=== PATIENT | male | born 1975 | race Caucasian/White ===

== ENCOUNTER 2022-07-22 09:56 | Inpatient (IN) ==
[2022-07-22 12:26] LABS: Basophils % 0.2 %; Eosinophils # 0.1 K/mcL (0.0-0.6); Eosinophils % 0.8 %; Hematocrit 42.1 % (37.5-50.1); Hemoglobin 14.7 g/dL (12.9-16.9); Immature Granulocytes % 0.3 % (0-4); Mean Corpuscular HGB Conc 34.9 g/dL (31.6-35.5); Mean Corpuscular Hemoglobin 32.8 pg (28.0-33.3); Mean Platelet Volume 10.5 fL (9.4-12.4); Monocytes # 0.9 K/mcL (0.0-1.3); Monocytes % 6.9 %; Neutrophils # 9.5 K/mcL (1.6-8.9); Platelet Count 140 K/mcL (140-400); Red Blood Count 4.48 M/mcL (4.19-5.50); Red Cell Distribution Width 12.8 % (11.5-14.5); Segmented Neutrophils % 75.8 %; White Blood Count 12.5 K/mcL (4.3-11.1)
[2022-07-22] MEDS ORDERED: Ketorolac 30 MG/ML VIAL IVP ONE (12:32)
[2022-07-22 15:03] LABS: BUN/Creatinine Ratio 15 (6-26); Blood Urea Nitrogen 14 mg/dL (6-20); C-Reactive Protein 46 mg/L (Less than 10); Calcium 9.1 mg/dL (8.6-10.3); Carbon Dioxide 24 mEq/L (23-29); Chloride 109 mEq/L (98-107); Glucose 80 mg/dL (70-105); Osmolality,Calculated 285 (280-300); Potassium 4.1 mEq/L (3.5-5.1); Sodium 138 mEq/L (136-145)
[2022-07-22] MEDS ORDERED: Acetaminophen 325 MG TABLET PO PRN (17:07)
[2022-07-22] MEDS ORDERED: *HR* HYDROcodone/Acet 5/325 mg TABLET PO PRN (17:07)
[2022-07-22] MEDS ORDERED: *HR* OxyCODONE Immed Rel 5 MG TABLET PO PRN (17:07)
[2022-07-22] MEDS ORDERED: Ondansetron 4 MG/2 ML VIAL IVP PRN (17:08)
[2022-07-22] MEDS ORDERED: Naloxone 0.4 MG/ML INJ IVP PRN (17:11)
[2022-07-22] MEDS: Ketorolac 30 MG/ML VIAL IVP SCH ×2 (17:45→23:09)
[2022-07-22] MEDS: cefTRIAXone 1,000 MG in 0.9 % Sodium Chloride 10 ML IVP SCH (17:46)
[2022-07-22] MEDS: Vancomycin 1,250 MG/262.5 ML IV.SOLN IVPB SCH (18:27)
[2022-07-23] MEDS: Ketorolac 30 MG/ML VIAL IVP SCH (05:10)
[2022-07-23] MEDS ORDERED: *HR* Enoxaparin 40 MG/0.4 ML SYRINGE SQ SCH (06:00)
[2022-07-23] MEDS: Vancomycin 1,250 MG/262.5 ML IV.SOLN IVPB SCH ×2 (07:08→17:35)
[2022-07-23] MEDS: cefTRIAXone 1,000 MG in 0.9 % Sodium Chloride 10 ML IVP SCH (10:04)
[2022-07-23 10:33] LABS: Basophils % 0.3 %; Red Cell Distribution Width 12.9 % (11.5-14.5)
[2022-07-23 10:35] LABS: Eosinophils # 0.2 K/mcL (0.0-0.6); Eosinophils % 1.7 %; Hematocrit 42.7 % (37.5-50.1); Hemoglobin 14.8 g/dL (12.9-16.9); Immature Granulocytes % 0.4 % (0-4); Lymphocytes # 1.9 K/mcL (0.6-4.6); Lymphocytes % 21.3 %; Mean Corpuscular HGB Conc 34.7 g/dL (31.6-35.5); Mean Corpuscular Hemoglobin 32.7 pg (28.0-33.3); Mean Corpuscular Volume 94.3 fL (83.0-100.0); Mean Platelet Volume 10.5 fL (9.4-12.4); Monocytes # 0.6 K/mcL (0.0-1.3); Monocytes % 6.7 %; Neutrophils # 6.3 K/mcL (1.6-8.9); Platelet Count 121 K/mcL (140-400); Red Blood Count 4.53 M/mcL (4.19-5.50); Segmented Neutrophils % 69.6 %; White Blood Count 9.1 K/mcL (4.3-11.1)
[2022-07-23 10:37] LABS: BUN/Creatinine Ratio 17 (6-26); Blood Urea Nitrogen 17 mg/dL (6-20); Calcium 8.5 mg/dL (8.6-10.3); Carbon Dioxide 18 mEq/L (23-29); Chloride 110 mEq/L (98-107); Glucose 99 mg/dL (70-105); Osmolality,Calculated 286 (280-300); Potassium 4.6 mEq/L (3.5-5.1); Sodium 137 mEq/L (136-145)
[2022-07-23 10:45] LABS: Platelet Estimate Slight Decrease (Normal)
[2022-07-23 10:52] LABS: INR 1.1
[2022-07-23] MEDS ORDERED: Famotidine 20 MG/2 ML VIAL IVP ONE (11:31)
[2022-07-23] MEDS ORDERED: *HR* FentaNYL (PF) 100 MCG/2 ML VIAL ONE (11:34)
[2022-07-23] MEDS ORDERED: *HR* Propofol 200 MG/20 ML VIAL IVP ONE (11:35)
[2022-07-23] MEDS ORDERED: *HR* Midazolam HCl 2 MG/2 ML VIAL ONE (11:35)
[2022-07-23] MEDS ORDERED: Lidocaine -MPF 2% 5 ML VIAL ONE (11:43)
[2022-07-23] MEDS ORDERED: Ondansetron 4 MG/2 ML VIAL ONE (11:43)
[2022-07-23] MEDS ORDERED: Bacitracin OINT PKT TP ONE (11:58)
[2022-07-23] MEDS ORDERED: Lidocaine/EPI 1:100k 1% 20 ML VIAL ONE (11:58)
[2022-07-23] MEDS ORDERED: *HR* HYDROMORPHONE 2 MG/ML VIAL ONE (12:29)
[2022-07-23] MEDS: *HR* HYDROmorphone PF 0.5 MG/0.5 ML SYRINGE IVP PRN ×3 (13:20→13:45)
[2022-07-23] MEDS ORDERED: *HR* FentaNYL (PF) 100 MCG/2 ML VIAL IVP ONE (20:13)
[2022-07-23] MEDS: Piperacillin/Tazobactam 3.375 GM in 0.9 % Sodium Chloride Mini Bag 100 ML IVPB SCH (23:35)
[2022-07-24 05:49] LABS: Basophils % 0.2 %; Eosinophils % 0.1 %; Hematocrit 39.5 % (37.5-50.1); Hemoglobin 13.3 g/dL (12.9-16.9); Immature Granulocytes % 0.4 % (0-4); Lymphocytes # 1.4 K/mcL (0.6-4.6); Lymphocytes % 8.7 %; Mean Corpuscular HGB Conc 33.7 g/dL (31.6-35.5); Mean Corpuscular Hemoglobin 31.8 pg (28.0-33.3); Mean Corpuscular Volume 94.5 fL (83.0-100.0); Mean Platelet Volume 10.5 fL (9.4-12.4); Monocytes # 0.8 K/mcL (0.0-1.3); Monocytes % 5.3 %; Neutrophils # 13.3 K/mcL (1.6-8.9); Platelet Count 148 K/mcL (140-400); Red Blood Count 4.18 M/mcL (4.19-5.50); Red Cell Distribution Width 12.6 % (11.5-14.5); Segmented Neutrophils % 85.3 %
[2022-07-24 05:51] LABS: White Blood Count 15.6 K/mcL (4.3-11.1)
[2022-07-24] MEDS: Vancomycin 1,250 MG/262.5 ML IV.SOLN IVPB SCH (06:14)
[2022-07-24 07:20] VITALS: O2SAT 94
[2022-07-24 07:41] LABS: Calcium 8.4 mg/dL (8.6-10.3); Potassium 4.1 mEq/L (3.5-5.1)
[2022-07-24] MEDS: Piperacillin/Tazobactam 3.375 GM in 0.9 % Sodium Chloride Mini Bag 100 ML IVPB SCH (08:24)
[2022-07-24 11:15] VITALS: BP 124/81; PULSE 76; TEMP 98.4
== END 2022-07-24 15:30 | disposition left against medical advice (07) | DRG 513 ==
LOC: EMEROOARM 09:56 → 4WAOSI 09:56
PROVIDERS: ADMIT Student in an Organized Health Care Education/Training Program; ATTEND Student in an Organized Health Care Education/Training Program